=== PATIENT | male | born 1950 | race Caucasian/White ===

== ENCOUNTER → 2017-01-15 | Outpatient (CLI) | payer MEDICARE, OTHER ==
[~2017-01-15] MED LIST: ALLO300T2 PO; ANDR1GEL TOPICAL; ASPI1TAB69 PO; CALC0.0013 TOPICAL; CLIN1GEL TOPICAL; CLOB0.055 TOPICAL; COLC1CAP3 PO; CYCL1TAB29 PO; DIAZ5 PO; HYDR-3583 PO; IBUP-232 PO; IBUP800T23 PO; INDO50CA PO; KETO2CRE TOPICAL; LIPI40TA PO; LISI-591 PO; LISI40TA PO; MEDR4PAK PO; MOBI15TA PO; NEUR300C PO; OMEP40CA2 PO; TIZA4TAB PO; TOPR50TA PO; ZANA4CAP PO; ZOFR4TAB3 SL
[2017-01-15 10:11] LABS: BLOOD, URINE NEG (NEG); GLUCOSE,URINE NEG (NEG); KETONE, URINE NEG (NEG); NITRITE,URINE NEG (NEG); PH, URINE 5.5 (5.0-8.5); URINE COLOR LIGHT-YELLOW (YELLW/STRAW)
[2017-01-15 10:13] LABS: COMMENT (UR) CULT NOT INDICATED; CULTURE IF INDICATED CULT NOT INDICATED
[2017-01-15 10:18] LABS: APTT (PATIENT) 28.7 SEC (24.3-30.1); PROTHROMBIN TIME - PATIENT 10.8 SEC (9.8-11.6)
[2017-01-15 10:24] LABS: AUTOMATED NEUTROPHIL # 3.3 TH/MM3 (1.8-7.7); BASOPHIL # 0.1 TH/MM3 (0-0.2); BASOPHIL % 0.9 % (0.0-2.0); EOSINOPHIL # 0.1 TH/MM3 (0-0.4); EOSINOPHIL % 2.2 % (0.0-4.0); HEMATOCRIT 44.8 % (39.0-51.0); HEMO FLAGS DIFF FINAL; LYMPH % 24.3 % (9.0-44.0); LYMPHOCYTE # 1.4 TH/MM3 (1.0-4.8); MEAN CELL VOLUME 95.4 FL (80.0-100.0); MEAN CORPUSCULAR HEMOGLOBIN 32.4 PG (27.0-34.0); MONO % 13.7 % (0.0-8.0); NEUT % 58.9 % (16.0-70.0); PLATELET COUNT 188 TH/MM3 (150-450); RED CELL DISTRIBUTION WIDTH 13.9 % (11.6-17.2); WHITE BLOOD COUNT 5.6 TH/MM3 (4.0-11.0)
[2017-01-15 10:48] LABS: ALKALINE PHOSPHATASE 83 U/L (45-117); ALT (GPT) 46 U/L (12-78); ANION GAP 7 MEQ/L (5-15); AST (GOT) 29 U/L (15-37); BICARBONATE 28.5 MEQ/L (21.0-32.0); BLOOD UREA NITROGEN 13 MG/DL (7-18); CHLORIDE 103 MEQ/L (98-107); GLOMERULAR FILTRATION RATE 82 ML/MIN (>89); GLUCOSE,FASTING 83 MG/DL (74-99); POTASSIUM 4.5 MEQ/L (3.5-5.1); SODIUM (NA) 138 MEQ/L (136-145); TOTAL BILIRUBIN ADULT 0.9 MG/DL (0.2-1.0)
--- NOTE | 2017-01-15 11:24 | RADRPT ---
EXAM DATE/TIME: 01/15/2017 11:00 [facility] COMPARISON: No previous studies available for comparison. INDICATIONS : Evaluate for pneumonia, pneumothorax, and communicable diseases. Pre-op back surgery. MEDICAL HISTORY : None. SURGICAL HISTORY : None. ENCOUNTER: Initial ACUITY: 1 day PAIN SCORE: 0/10 LOCATION: Bilateral chest FINDINGS: PA and lateral views of the chest demonstrate the lungs to be symmetrically aerated without evidence of mass, infiltrate or effusion. The cardiomediastinal contours are unremarkable. Osseous structure s are intact. CONCLUSION: No acute disease. Leonardo Addison MD FACR on January 15, 2017 at 11:22 Board Certified Radiologist. This report was verified electronically.
--- NOTE | 2017-01-15 13:51 | EKG ---
Date Performed: 01/15/2017 Time Performed: 10:20:21 PTAGE: 66 years EKG: SINUS BRADYCARDIA BORDERLINE ECG NO PREVIOUS TRACING DOCTOR: Chris Prabhakar Interpretating Date/Time 01/15/2017 13:49:36
== END ==
LOC: CPRE 09:19
PROVIDERS: ATTEND Neurological Surgery
DX: Z01.810 Encounter for preprocedural cardiovascular examination (principal); Z01.811 Encounter for preprocedural respiratory examination; Z01.812 Encounter for preprocedural laboratory examination; Z01.818 Encounter for other preprocedural examination; M48.06 Spinal stenosis, lumbar region; R94.31 Abnormal electrocardiogram [ECG] [EKG]
CPT/HCPCS: 36415; 71020; 80053; 81001; 85025; 85610; 85730; 93005

== ENCOUNTER 2017-01-27 06:16 | Observation (INO) | payer MEDICARE, OTHER ==
[~2017-01-27] VITALS: Ht 188 cm; Wt 122.1 kg
[~2017-01-27 06:16] MED LIST changes: -HYDR-3583 PO; -IBUP-232 PO; -LISI-591 PO; -MEDR4PAK PO; -NEUR300C PO; -TIZA4TAB PO; -ZANA4CAP PO; -ZOFR4TAB3 SL
[2017-01-27] MEDS ORDERED: CHLORHEXIDINE GLUCONATE 2 % 1 PACK (2 CLOTHS) TOPICAL PRN (06:45)
[2017-01-27] MEDS ORDERED: INSULIN HUMAN REGULAR 1,000 UNITS/10 ML VIAL SQ PRN (06:45)
[2017-01-27] MEDS ORDERED: POVIDONE IODINE 5% (ANTISEPSIS KIT) 4 APPLICATIONS EACH NARE PRN (06:45)
[2017-01-27] MEDS ORDERED: METOPROLOL TARTRATE 25 MG TAB PO PRN (06:45)
[2017-01-27] MEDS: SODIUM CHLOR 0.9% 1000 ML INJ 1,000 ML IV SCH (06:45)
[2017-01-27] MEDS ORDERED: VANCOMYCIN HCL 1000 MG ON-CALL/NS 250 ML IV SCH ×2 (06:45)
[2017-01-27] MEDS ORDERED: SODIUM CHLORID 0.9% 500 ML IV PRN (06:45)
[2017-01-27] MEDS ORDERED: BUPIVACAINE/EPINEPHRINE 0.5% PF 30 ML VIAL ONE (06:51)
[2017-01-27] MEDS ORDERED: ceFAZolin 2 GM PREMIX 50 ML ONE (06:51)
[2017-01-27] MEDS ORDERED: methylPREDNISolone ACETATE 40 MG/ML VIAL ONE (06:51)
[2017-01-27] MEDS ORDERED: THROMBIN (TOPICAL) 5,000 UNIT VIAL ONE (06:51)
[2017-01-27] MEDS ORDERED: GELFOAM SIZE 100 ONE (06:52)
[2017-01-27] MEDS ORDERED: GENTAMICIN SULFATE 80 MG/2 ML VIAL ONE (06:52)
[2017-01-27 07:17] VITALS: BP 135/82; PULSE 61; RESP 20; TEMP 98.1; O2SAT 95
[2017-01-27] MEDS: LACTATED RINGER'S 1000 ML IV PRN ×2 (07:23→15:18)
[2017-01-27] MEDS ORDERED: ARTIFICIAL TEARS OPTH OINT 3.5 APPLIC/3.5 GM TUBO ONE (08:03)
[2017-01-27] MEDS ORDERED: FAMOTIDINE 20 MG/2 ML VIAL ONE (08:03)
[2017-01-27] MEDS ORDERED: MIDAZOLAM HCL 2 MG/2 ML VIAL ONE (08:03)
[2017-01-27] MEDS ORDERED: fentaNYL CITRATE 250 MCG/5 ML AMP ONE (08:03)
[2017-01-27] MEDS ORDERED: CYCLOBENZAPRINE HCL 10 MG TAB PO PRN (10:00)
[2017-01-27] MEDS ORDERED: RESP: ALBUTEROL 2.5 MG/3 ML NEB (PRN) INH (10:00)
[2017-01-27] MEDS ORDERED: MORPHINE SULFATE 4 MG/ML INJ IV PUSH PRN ×2 (10:00)
[2017-01-27] MEDS ORDERED: INDOMETHACIN 50 MG CAP PO PRN (10:00)
[2017-01-27] MEDS ORDERED: cloNIDine HCL 0.1 MG TAB PO/NG PRN (10:00)
[2017-01-27] MEDS ORDERED: COLCHICINE 0.6 MG TAB PO PRN (10:00)
[2017-01-27] MEDS ORDERED: ACETAMINOPHEN 325 MG TAB PO PRN (10:00)
[2017-01-27] MEDS ORDERED: ACETAMINOPHEN/HYDROcodone 325 MG/10 MG TAB PO PRN ×2 (10:00)
[2017-01-27] MEDS ORDERED: DIAZEPAM 5 MG TAB PO PRN (10:00)
[2017-01-27] MEDS ORDERED: SODIUM CHLORIDE 0.9% FLUSH 5 ML FLUSH IVF PRN (10:00)
[2017-01-27] MEDS ORDERED: KETOCONAZOLE 2% CREAM 15 GM TOPICAL PRN (10:00)
[2017-01-27] MEDS ORDERED: MENTHOL LOZENGE BUCCAL PRN (10:00)
[2017-01-27] MEDS ORDERED: CLOBETASOL 0.05% TOPICAL (11:15)
[2017-01-27] MEDS ORDERED: CLINDAMYCIN 1% TOPICAL (11:15)
[2017-01-27] MEDS ORDERED: CALCIPOTRIENE 0.005% TOPICAL (11:15)
[2017-01-27] MEDS ORDERED: LACTATED RINGER'S 1000 ML INJ 1,000 ML IV ONE (12:00)
[2017-01-27] MEDS ORDERED: PROPOFOL 200 MG/20 ML AMP IV ONE (12:00)
[2017-01-27] MEDS ORDERED: NEOSTIGMINE 3 MG/3 ML SYR IV ONE ×2 (12:00)
[2017-01-27] MEDS ORDERED: ePHEDrine/NS 25 MG/5 ML SYR IV ONE (12:00)
[2017-01-27] MEDS ORDERED: ONDANSETRON HCL 4 MG/2 ML VIAL IV PUSH ONE (12:00)
[2017-01-27] MEDS ORDERED: PHENYLEPH/NS 1000 MCG/10 ML SYR IV ONE (12:00)
[2017-01-27] MEDS: NS + KCL 20 MEQ INJ 1,000 ML IV SCH ×2 (12:40→21:10)
--- NOTE | 2017-01-27 12:46 | RADRPT ---
EXAM DATE/TIME: 01/27/2017 09:15 [facility] COMPARISON: No previous studies available for comparison. INDICATIONS : Lumbar spine L3-4 L4-5 laminectomy and disk resection. OR. MEDICAL HISTORY : None. SURGICAL HISTORY : None. ENCOUNTER: Initial ACUITY: 1 day PAIN SCORE: Non-responsive. LOCATION: Lumbar 3-4 4-5 CONCLUSION: Lateral fluoroscopic image demonstrates temporary probe marking the posterior elements at L4. Elliott Damico MD on January 27, 2017 at 12:39 Board Certified Radiologist. This report was verified electronically.
[2017-01-27] MEDS ORDERED: DO NOT ADM ANY ANTICOAGULANT DRUGS PRN (13:00)
[2017-01-27] MEDS ORDERED: *ONDANSETRON 4 MG VIAL PERIprocedural Use ONLY ONE (13:01)
[2017-01-27 14:00] VITALS: BP 126/80; PULSE 67; RESP 16; TEMP 95.8; O2SAT 95
--- NOTE | 2017-01-27 14:17 | PD.OP ---
Operative Report Date of Surgery: January 27, 2017 Preoperative Diagnosis: Lumbar spinal stenosis Postoperative Diagnosis: Lumbar spinal stenosis Procedure: L3-4, L4-5 decompressive laminotomy, foraminotomy, mesial facetectomy with microsurgical resection of the disk Anesthesia: general Surgeon: Kulwinder Crowe Dental Floss Packer(s): Tania Milian Operation and Findings: INDICATIONS FOR THE SURGICAL PROCEDURE Mr Cleveland is a 66 year-old male who presented with intractable mechanical back pain and clinical evidence of L4 and L5 lower extremity radiculopathy. The patient was found to have significant lumbar spinal stenosis with significant mass effect on the neural structures which correlated with the clinical symptoms. He failed maximum nonsurgical management including multiple modalities of conservative treatment as well as pain management interventions by an interventional pain specialist. A surgical decompression was indicated as a last resort. The [id number] details of the procedure, indications, alternatives, risks and potential complications were fully discussed with the patient. The patient fully understood. All the questions were answered. No guarantees were given. The patient voiced requesting the procedure and provided informed consents. The patient was offered the alternative of delaying the procedure and continuing with nonsurgical management. DETAILS OF THE SURGICAL PROCEDURE After the induction of general anesthesia, endotracheal intubation was performed. A Nielsen catheter, bilateral LISY hose and sequential compression devices were placed and kept throughout the procedure. The patient was positioned prone on a Mayo table over a Pj frame. All pressure points were carefully padded with eggcrate mattress. The eyes were tapped shut after ointment was applied by the anesthesiologist to prevent corneal abrasion. A Elizabeth hugger was placed over the exposed lower body to maintain control of the core body temperature. The lower lumbar region was prepped and draped in the usual sterile fashion. A spinal needle was placed for localization and an x- ray performed with a C-arm. A skin incision was made in the midline over the spinous processes L3-4 ands L4- 5 with a #10 blade. Small subcutaneous bleeders were controlled with a bipolar and the dissection was carried out through the lumbar fascia exposing the spinous processes. A subperiostial dissection was performed with a James elevator and a Bovie over the L3-4 ands L4-5 spinous process lamina and facets. A microdiscectomy self-retaining retractor was placed on the incision and an x -ray was obtained with an instrument placed underneath the lamina of L4. At this point in the procedure the operating microscope was draped in the usual sterile fashion and brought to the field. The rest of the surgical procedure was performed using microsurgical dissection technique with exception of the closure. Once the level was confirmed, a left decompressive laminectomy was performed at L4-5 using the TPS drill with an 4mm drill bit. A medial facetectomy was performed and the superior free border of the ligamentum flavum was dissected with a ligament dissector and removed with a thin footplate 2 mm Kerrison. The medial facetectomy was done and the L5 nerve root was identified and followed towards its exit in the foramen. Epidural veins located laterally to the dural sac were coagulated with a bipolar and incised with microscissors. Gentle medial retraction of the dural sac allowed inspection of the disc space. The patient had severe facet arthropathy with hypertrhopy of the joint facets and ligamentum flavum resulting in mass effect over the dural sac and nerve roots. In addition, there was a broad-based disc protusion, contributing to the stenosis. The annulus fibrosus of the disc was coagulated with the bipolar and incised with an 11 blade. The extruded disc was carefully dissected from the surrounding tissue and removed with pituitary forceps. Then, a microdiscectomy was carried out in the standard fashion using straight and up-biting pituitary forceps. A good decompression of the dural sac and nerve root was achieved. The exit of the nerve root was inspected for residual disc fragments and hemostasis was secured with the bipolar. Then, a new xray was performed to locarte L3-4. Once the level was confirmed, a left decompressive laminectomy was performed at L3-L4 using the TPS drill with an 4mm drill bit. A medial facetectomy was performed and the superior free border of the ligamentum flavum was dissected with a ligament dissector and removed with a thin footplate 2 mm Kerrison. The medial facetectomy was done and the L4 nerve root was identified and followed towards its exit in the foramen. Epidural veins located laterally to the dural sac were coagulated with a bipolar and incised with microscissors. Gentle medial retraction of the dural sac allowed inspection of the disc space. The patient had severe facet arthropathy with hypertrhopy of the joint facets and ligamentum flavum resulting in mass effect over the dural sac and nerve roots. In addition, there was a very mild broad-based disc protusion, and discectomy was not deemed necessary at this level The incision was irrigated with a large amount of saline solution. A Valsalva maneuver failed to show any cerebrospinal fluid leak or bleeding. The decompression was assessed again and found to be satisfactory. The incision was then closed in layers. The fascia was closed with 0 Vicryl sutures in an interrupted fashion. The superficial fascia was closed with 0 Vicryl sutures. The fascia was infiltrated with 0.5% Marcaine with epinephrine 1:100,000 dilution. The subcutaneous tissue was irrigated then closed with 0 Vicryl and 3 -0 Vicryl. The skin was closed with 4-0 running subcuticular Vicryl. A sterile dressing was applied. At the end of the procedure, the sponge, needle and instrument counts were all correct. Estimated blood loss was less than 80 cc. No blood transfusion was given. No intraoperative complications occurred. The patient received prophylactic antibiotics. The patient was then extubated and transferred to the recovery room in stable condition. Kulwinder Crowe MD January 27, 2017 14:17
[2017-01-27] MEDS ORDERED: HYDR-3583 PO (14:52)
[2017-01-27] MEDS ORDERED: ZOFR4TAB3 SL (14:53)
--- NOTE | 2017-01-27 14:55 | HHI.DCPOC ---
Discharge Care Plan Diagnosis: (1) S/P lumbar laminectomy Goals to Promote Your Health * To prevent worsening of your condition and complications * To maintain your health at the optimal level Directions to Meet Your Goals Take your medications as prescribed Follow your dietary instruction Follow activity as directed Keep your appointments as scheduled Take your immunizations and boosters as scheduled If your symptoms worsen call your PCP, if no PCP go to Urgent Care Center or Emergency Room Smoking is Dangerous to Your Health. Avoid second hand smoke Call the 24-hour hour crisis hotline for domestic abuse at Dina Bowen January 27, 2017 14:55
[2017-01-27 17:35] VITALS: O2SAT 92
[2017-01-27] MEDS: ceFAZolin 2 GM PREMIX 50 ML IV SCH (18:13)
[2017-01-27] MEDS: ONDANSETRON HCL 4 MG/2 ML VIAL IV PRN (19:29)
[2017-01-27 20:00] VITALS: BP 133/84; PULSE 83; RESP 18; TEMP 96.7; O2SAT 94
[2017-01-27] MEDS ORDERED: ATORVASTATIN 40 MG TAB PO SCH (21:00)
[2017-01-27] MEDS: SODIUM CHLORIDE 0.9% FLUSH 5 ML FLUSH IVF SCH (21:00)
[2017-01-27] MEDS ORDERED: NON-FORMULARY DRUG (Omeprazole 40 MG) PO SCH (21:00)
[2017-01-27] MEDS: DOCUSATE SODIUM 100 MG CAP PO SCH (21:08)
[2017-01-28] VITALS: BP 111/67; PULSE 87; RESP 18; TEMP 97.2; O2SAT 95
[2017-01-28] MEDS: ceFAZolin 2 GM PREMIX 50 ML IV SCH ×2 (01:02→08:37)
[2017-01-28 04:00] VITALS: BP 103/55; PULSE 75; RESP 16; TEMP 98; O2SAT 95
[2017-01-28] MEDS: ONDANSETRON HCL 4 MG/2 ML VIAL IV PRN ×2 (05:37→16:27)
[2017-01-28] MEDS: NS + KCL 20 MEQ INJ 1,000 ML IV SCH ×2 (05:37→15:48)
[2017-01-28] MEDS: SODIUM CHLOR 0.9% 1000 ML INJ 1,000 ML IV SCH (06:45)
[2017-01-28 07:41] VITALS: BP 122/67; PULSE 70; RESP 18; TEMP 99.2; O2SAT 92
[2017-01-28] MEDS: DOCUSATE SODIUM 100 MG CAP PO SCH (08:37)
[2017-01-28] MEDS: SODIUM CHLORIDE 0.9% FLUSH 5 ML FLUSH IVF SCH (08:38)
[2017-01-28] MEDS ORDERED: LISINOPRIL 20 MG TAB PO SCH (09:00)
[2017-01-28] MEDS ORDERED: TESTOSTERONE TOPICAL SCH (09:00)
[2017-01-28] MEDS ORDERED: PANTOPRAZOLE SOD 40 MG DELAYED RELEASE TAB PO SCH (09:00)
[2017-01-28] MEDS ORDERED: METOPROLOL SUCCINATE 50 MG EXTENDED RELEASE TAB PO SCH (09:00)
[2017-01-28] MEDS ORDERED: ALLOPURINOL 300 MG TAB PO SCH (09:00)
[2017-01-28] MEDS ORDERED: KETOROLAC TROMETHAMINE 60 MG/2 ML (IM) VIAL IM ONE (10:00)
[2017-01-28] MEDS ORDERED: ZANA4CAP PO (10:00)
[2017-01-28] MEDS ORDERED: HYDROmorphone HCL PF 2 MG/ML VIAL SQ ONE (10:00)
--- NOTE | 2017-01-28 10:46 | HHI.DS ---
Discharge Summary Admission Date January 27, 2017 at 09:51 Discharge Date: January 28, 2017 Admitting Diagnosis s/p lumbar laminectomy (1) S/P lumbar laminectomy ICD Code: Z98.890 Brief History Mr Cleveland is a 66 year-old male who presented with intractable mechanical back pain and clinical evidence of L4 and L5 lower extremity radiculopathy. The patient was found to have significant lumbar spinal stenosis with significant mass effect on the neural structures which correlated with the clinical symptoms. He failed maximum nonsurgical management including multiple modalities of conservative treatment as well as pain management interventions by an interventional pain specialist. A surgical decompression was indicated as a last resort Imaging Last Impressions Lumbar Spine X-Ray 01/27/17 0000 Signed Impressions: Service Date/Time: Friday, January 27, 2017 09:15 - CONCLUSION: Lateral fluoroscopic image demonstrates temporary probe marking the posterior elements at L4. Elliott Damico MD Hospital Course Mr. Raman underwent laminectomy on January 27, 2017. His surgery went well without complications. He was discharged home the following day in stable conditions. Pt Condition on Discharge: Stable Discharge Disposition: Discharge Home Discharge Instructions DIET: Follow Instructions for: Heart Healthy Diet ACTIVITIES You can perform: Weight Bearing As Andrew ADDITIONAL Activity Instructio: Avoid strenuous activities, heavy lifting, overhead activities, repetitive bending, twisting, pushing, pulling or any activities which might result in stress over the spine. Avoid situtation that will put at risk for falls. Use assistive device as needed for walking. Wear lumbar brace when out of bed. New Medications: Ondansetron Odt (Zofran Odt) 4 Mg Tab 4 MG SL Q8HR PRN Nausea/Vomiting #15 Ref 0 TAB Tizanidine (Zanaflex) 4 Mg Cap 4 MG PO TID Muscle Spasm #90 Ref 0 CAP Hydrocodone-Acetaminophen (Hydrocodone-Acetaminophen) 10-325 mg Tab 1 TAB PO Q8HR PRN PAIN SCALE 1 TO 10 #90 TAB Continued Medications: Allopurinol (Allopurinol) 300 Mg Tab 300 MG PO DAILY Gout #30 Ref 0 TAB Aspirin (Aspirin) 81 Mg Tabdr 81 MG PO DAILY Blood Clot Prevention TAB Atorvastatin (Lipitor) 40 Mg Tab 40 MG PO HS Cholesterol Management #30 Ref 0 TAB Calcipotriene Topical (Calcipotriene Topical) 0.005% Soln 1 APPLIC TOPICAL BID comb hair to remove debris, part hair, apply only to scalp lesions, rub in gently & completely to prevent spread to forehead. PRN PSORIASIS #60 Ref 0 ML Clindamycin Topical (Clindamycin Topical) 1% Gel 1 APPLIC TOPICAL BID PRN RASH #30 Ref 0 GM Clobetasol Topical (Clobetasol Topical) 0.05% Cream 1 APPLIC TOPICAL BID PRN RASH #15 Ref 0 GM Colchicine (Colchicine) 0.6 Mg Cap 0.6 MG PO DAILY PRN GOUT Ref 0 CAP Cyclobenzaprine (Flexeril) 10 Mg Tab 10 MG PO TID PRN MUSCLE SPASM #90 Ref 0 TAB Diazepam (Valium) 5 Mg Tab 5 MG PO BID PRN anxiety, spasm #30 Ref 0 TAB Ibuprofen (Ibuprofen) 800 Mg Tab 600 MG PO TID PRN PAIN Ref 0 TAB Indomethacin (Indomethacin) 50 Mg Cap 50 MG PO DAILY Take with food, milk, or antacids to decrease stomach adverse effects. PRN GOUT Ref 0 CAP Ketoconazole Topical (Ketoconazole Topical) 2% Cream 1 APPLIC TOPICAL DAILY PRN FUNGAL #15 Ref 0 GM Lisinopril (Lisinopril) 40 Mg Tab 40 MG PO DAILY Blood Pressure Management #30 Ref 0 TAB Meloxicam (Mobic) 15 Mg Tab 15 MG PO DAILY PRN ARTHRITIS PAIN Ref 0 TAB Metoprolol Succinate ER 24 HR (Toprol XL) 50 Mg Tab 50 MG PO DAILY Blood Pressure Management #30 Ref 0 TAB Omeprazole (Omeprazole) 40 Mg Cap 40 MG PO BID Reflux #30 Ref 0 CAP Testosterone Topical (Androgel Topical) 25 Mg/2.5 Gm Gel 50 MG TOPICAL DAILY Apply in the morning to the shoulder and the upper arm Hormone Replacement #1 Ref 0 Dina Webb January 28, 2017 10:46
[2017-01-28 10:57] VITALS: O2SAT 93
[2017-01-28 11:38] VITALS: BP 119/73; PULSE 79; RESP 18; TEMP 97.3; O2SAT 91
[2017-01-28] MEDS ORDERED: HYDROmorphone HCL PF 2 MG/ML VIAL IV PUSH SCH (13:15)
[2017-02-16] MEDS ORDERED: TIZA4TAB PO (11:11)
[2017-02-16] MEDS ORDERED: NEUR300C PO (11:21)
[2017-02-16] MEDS ORDERED: IBUP-232 PO (11:21)
[2017-03-01] MEDS ORDERED: TIZA4TAB PO (16:15)
[2017-03-04] MEDS ORDERED: MEDR4PAK PO (17:18)
[2017-03-04] MEDS ORDERED: ZOFR4TAB3 SL (17:20)
== END 2017-01-28 17:13 | disposition home or self-care (01) ==
LOC: HSDC 06:16 → HSDI 09:51 → N06B 13:35
PROVIDERS: ADMIT Neurological Surgery; ATTEND Neurological Surgery
DX: M48.06 Spinal stenosis, lumbar region (principal); M51.16 Intervertebral disc disorders with radiculopathy, lumbar region; I10 Essential (primary) hypertension; E78.5 Hyperlipidemia, unspecified; I25.10 Atherosclerotic heart disease of native coronary artery without angina pectoris; M10.9 Gout, unspecified; K21.9 Gastro-esophageal reflux disease without esophagitis; F17.220 Nicotine dependence, chewing tobacco, uncomplicated; Z91.030 Bee allergy status; Z85.828 Personal history of other malignant neoplasm of skin
CPT/HCPCS: 63030; 63035; 72020; 76000; 94150; 97162; G0378; J0690; J1030; J1170; J1580; J1885; J2250; J2370; J2405; J2710; J3010; J3370; J3480; J7050; J7120; L0627; G8987-GP; G8988-GP

== ENCOUNTER 2017-08-16 12:10 | Emergency (ER) | payer MEDICARE, OTHER ==
[~2017-08-16] VITALS: Ht 190.5 cm; Wt 123.0 kg
[~2017-08-16 12:10] MED LIST changes: -ASPI1TAB69 PO; +ASPI81CH7 CHEW; -CLOB0.055 TOPICAL; -CYCL1TAB29 PO; -DIAZ5 PO; +IBUP-232 PO; +IBUP1TAB7 PO; -IBUP800T23 PO; -KETO2CRE TOPICAL; +NEUR300C PO; +TIZA4TAB PO
[2017-08-16 12:32] VITALS: BP 148/85; PULSE 66; RESP 18; TEMP 98.2; O2SAT 99
[2017-08-16] MEDS ORDERED: CIAL10TA PO (14:27)
[2017-08-16] MEDS ORDERED: MECLIZINE HCL 25 MG TAB PO ONE (15:15)
[2017-08-16] MEDS ORDERED: SODIUM CHLOR 0.9% 1000 ML INJ 1,000 ML IV SCH (15:15)
[2017-08-16] MEDS ORDERED: ONDANSETRON HCL 4 MG/2 ML VIAL IV PUSH ONE (15:15)
[2017-08-16] MEDS ORDERED: LORazepam 2 MG/ML VIAL IV PUSH ONE (15:15)
--- NOTE | 2017-08-16 15:20 | PD ---
HPI Chief Complaint: Dizziness Time Seen by Provider: 15:13 Travel History International Travel<30 days: No Contact w/Intl Traveler<30days: No Traveled to known affect area: No History of Present Illness HPI This 67-year-old male says that he has been dizzy since he woke up this morning. I dizzy he does not mean that the room is spinning that he is spending at that he is lost all since his balance. He says he had a similar episode 6 weeks ago which lasted about 15 minutes. He says he had a some mild symptoms yesterday but today the symptoms are quite severe and make it hard for him to walk. In order to walk he has to hold onto things. He has chronic tinnitus. He has essential tremor. He has had back surgery in the past. He has not noted any trouble with speech or swallowing. He had melanoma 9 years ago PFSH Past Medical History Arthritis: Yes Cancer: Yes (MALIGNANT MELANOMA ON BACK) Cardiovascular Problems: No High Cholesterol: Yes Diabetes: No Endocrine: No Gout: Yes Genitourinary: No Hepatitis: No Hiatal Hernia: Yes Herniated Disk: Yes Hypertension: Yes Immune Disorder: Yes (GOUT) Musculoskeletal: Yes Neurologic: Yes (TREMORS) Psychiatric: No Reproductive: No Respiratory: No Thyroid Disease: No Influenza Vaccination: No Past Surgical History Abdominal Surgery: No AICD: No Cardiac Surgery: No Ear Surgery: No Endocrine Surgery: No Eye Surgery: No Genitourinary Surgery: No Joint Replacement: No Oral Surgery: No Pacemaker: No Thoracic Surgery: No Tonsillectomy: Yes Social History Alcohol Use: Yes (4 JULIAN JOSIE DRINKS PER DAY.) Tobacco Use: Yes (CHEWS TOBACCO) Substance Use: No Allergies-Medications (Allergen,Severity, Reaction): Coded Allergies: bee venom protein (honey bee) (Unverified Allergy, Severe, Anaphylaxis, ) Reported Meds & Prescriptions Reported Meds & Active Scripts Active Neurontin (Gabapentin) 300 Mg Cap 600 Mg PO TID Reported Cialis (Tadalafil) 10 Mg Tab 10 Mg PO DAILY PRN Do not exceed 1 dose/day. Aspirin Children's (Aspirin) 81 Mg Chew 81 Mg CHEW DAILY Lisinopril 40 Mg Tab 40 Mg PO DAILY Androgel Topical (Testosterone) 25 Mg/2.5 Gm Gel 50 Mg TOPICAL DAILY Apply in the morning to the shoulder and the upper arm Omeprazole 40 Mg Cap 40 Mg PO BID Toprol XL (Metoprolol Succinate) 50 Mg Tab 50 Mg PO DAILY Mobic (Meloxicam) 15 Mg Tab 15 Mg PO DAILY PRN Indomethacin 50 Mg Cap 50 Mg PO DAILY PRN Take with food, milk, or antacids to decrease stomach adverse effects. Colchicine 0.6 Mg Cap 0.6 Mg PO DAILY PRN Lipitor (Atorvastatin Calcium) 40 Mg Tab 40 Mg PO HS Allopurinol 300 Mg Tab 150 Mg PO DAILY Review of Systems General / Constitutional: No: Fever, Chills Eyes: No: Diploplia, Blurred Vision HENT: No: Headaches Cardiovascular: No: Chest Pain or Discomfort, Palpitations Respiratory: No: Cough, Shortness of Breath Gastrointestinal: Positive: Nausea Genitourinary: No: Urgency, Frequency Musculoskeletal: No: Myalgias Skin: No Rash Neurologic: Positive: Dizziness, Tremor Psychiatric: No: Anxiety Endocrine: No: Heat Intolerance Hematologic/Lymphatic: No: Easy Bruising Physical Exam Narrative GENERAL: Well-developed male SKIN: Focused skin assessment warm/dry. HEAD: Atraumatic. Normocephalic. EYES: Pupils equal and round. No scleral icterus. No injection or drainage. ENT: No nasal bleeding or discharge. Mucous membranes pink and moist. NECK: Trachea midline. No JVD. CARDIOVASCULAR: Regular rate and rhythm. No murmur appreciated. RESPIRATORY: No accessory muscle use. Clear to auscultation. Breath sounds equal bilaterally. GASTROINTESTINAL: Abdomen soft, non-tender, nondistended. Hepatic and splenic margins not palpable. MUSCULOSKELETAL: No obvious deformities. No clubbing. No cyanosis. No edema. NEUROLOGICAL: Awake and alert. No obvious cranial nerve deficits. I do not see any nystagmus Motor grossly within normal limits. Normal speech. He does have some past pointing on [id number] testing no this may be secondary to his tremor PSYCHIATRIC: Appropriate mood and affect; insight and judgment normal. Data Data Last Documented VS Vital Signs Date Time Temp Pulse Resp B/P (MAP) Pulse Ox O2 Delivery O2 Flow Rate FiO2 08/16/17 12:32 98.2 66 18 148/85 (106) 99 Orders Orders Complete Blood Count With Diff (08/16/17 15:13) Basic Metabolic Panel (Bmp) (08/16/17 15:13) Mri Brain W/O Contrast (08/16/17 15:13) Meclizine (Antivert) (08/16/17 15:15) Lorazepam Inj (Ativan Inj) (08/16/17 15:15) Ondansetron Inj (Zofran Inj) (08/16/17 15:15) Sodium Chlor 0.9% 1000 Ml Inj (Ns 1000 M (08/16/17 15:15) Labs Laboratory Tests Test 08/16/17 14:45 White Blood Count 6.3 TH/MM3 Red Blood Count 4.77 MIL/MM3 Hemoglobin 15.2 GM/DL Hematocrit 45.4 % Mean Corpuscular Volume 95.0 FL Mean Corpuscular Hemoglobin 31.8 PG Mean Corpuscular Hemoglobin Concent 33.4 % Red Cell Distribution Width 13.3 % Platelet Count 208 TH/MM3 Mean Platelet Volume 8.2 FL Neutrophils (%) (Auto) 72.9 % Lymphocytes (%) (Auto) 15.4 % Monocytes (%) (Auto) 10.0 % Eosinophils (%) (Auto) 1.2 % Basophils (%) (Auto) 0.5 % Neutrophils # (Auto) 4.6 TH/MM3 Lymphocytes # (Auto) 1.0 TH/MM3 Monocytes # (Auto) 0.6 TH/MM3 Eosinophils # (Auto) 0.1 TH/MM3 Basophils # (Auto) 0.0 TH/MM3 CBC Comment DIFF FINAL Differential Comment Blood Urea Nitrogen 9 MG/DL Creatinine 0.90 MG/DL Random Glucose 101 MG/DL Calcium Level 9.2 MG/DL Sodium Level 136 MEQ/L Potassium Level 3.8 MEQ/L Chloride Level 99 MEQ/L Carbon Dioxide Level 28.5 MEQ/L Anion Gap 9 MEQ/L Estimat Glomerular Filtration Rate 84 ML/MIN [facility] Medical Decision Making Medical Screen Exam Complete: Yes Emergency Medical Condition: Yes Medical Record Reviewed: Yes Differential Diagnosis Differential includes labyrinthitis, vestibular dysfunction, CVA Narrative Course I have ordered an MRI to assess for possible CVA. MRI has been read as negative. Lab work is unremarkable. Patient will be released with prescriptions for Antivert and Zofran Diagnosis Primary Impression: Vestibular dysfunction Scripts Ondansetron Odt (Zofran Odt) 4 Mg Tab 4 MG SL Q6HR Y for Nausea/Vomiting, #10 TAB 0 Refills Prov: Audie Islas MD 08/16/17 [antivert] No Conflict Check 25 MG PO Q6HR for Vertigo, #30 Prov: Audie Islas MD 08/16/17 Disposition: 01 DISCHARGE HOME Condition: Stable Audie Islas MD Aug 16, 2017 15:20
[2017-08-16 15:46] LABS: AUTOMATED NEUTROPHIL # 4.6 TH/MM3 (1.8-7.7); BASOPHIL % 0.5 % (0.0-2.0); EOSINOPHIL # 0.1 TH/MM3 (0-0.4); EOSINOPHIL % 1.2 % (0.0-4.0); HEMATOCRIT 45.4 % (39.0-51.0); HEMO FLAGS DIFF FINAL; LYMPH % 15.4 % (9.0-44.0); MEAN CORPUSCULAR HEMOGLOBIN 31.8 PG (27.0-34.0); MEAN CORPUSCULAR HGB CONC 33.4 % (32.0-36.0); NEUT % 72.9 % (16.0-70.0); PLATELET COUNT 208 TH/MM3 (150-450); RED BLOOD COUNT 4.77 MIL/MM3 (4.50-5.90); RED CELL DISTRIBUTION WIDTH 13.3 % (11.6-17.2); WHITE BLOOD COUNT 6.3 TH/MM3 (4.0-11.0)
[2017-08-16 15:52] LABS: POTASSIUM 3.8 MEQ/L (3.5-5.1)
[2017-08-16 15:58] LABS: BICARBONATE 28.5 MEQ/L (21.0-32.0)
--- NOTE | 2017-08-16 16:15 | RADRPT ---
EXAM DATE/TIME: 08/16/2017 16:05 [facility] COMPARISON: No previous studies available for comparison. INDICATIONS : CVA. MEDICAL HISTORY : Hypertension. Hernia, hiatal. Hypertension. Melanomia 9 years ago, Chronic tremor SURGICAL HISTORY : Melanoma removed from back, RF lumbar nerve sx. ENCOUNTER: Initial ACUITY: 1 day PAIN SCORE: 9/10 LOCATION: Bilateral cranial TECHNIQUE: Multiplanar, multisequence MRI of the brain was performed without contrast. FINDINGS: CEREBRUM: The ventricles are normal for age. No evidence of midline shift, mass lesion, hemorrhage or acute in farction. No extraaxial fluid collections are seen. The pituitary gland and suprasellar cistern are normal in configuration. WHITE MATTER: No significant signal abnormalities are seen in the white matter. POSTERIOR FOSSA: The cerebellum and brainstem are intact. The 4th ventricle is midline. The cerebellopontine angle is unremarkable. The cerebellar tonsils are normal in position. DIFFUSION IMAGING: No focal areas of restricted diffusion are seen. No evidence of acute infarction. EXTRACRANIAL: The visualized portions of the orbits and paranasal sinuses are unremarkable. CONCLUSION: No acute disease. Fabricio Stevens Jr., MD on August 16, 2017 at 16:11 Board Certified Radiologist. This report was verified electronically.
[2017-08-16] MEDS ORDERED: antivert PO (16:32)
[2017-08-16] MEDS ORDERED: ZOFR4TAB3 SL (16:32)
== END 2017-08-16 16:53 | disposition home or self-care (01) ==
LOC: PHEFT 12:10
DX: H81.90 Unspecified disorder of vestibular function, unspecified ear (principal); H93.19 Tinnitus, unspecified ear; R25.1 Tremor, unspecified; I10 Essential (primary) hypertension; E78.00 Pure hypercholesterolemia, unspecified; Z72.0 Tobacco use; Z87.39 Personal history of other diseases of the musculoskeletal system and connective tissue; Z85.828 Personal history of other malignant neoplasm of skin; Z86.69 Personal history of other diseases of the nervous system and sense organs
CPT/HCPCS: 70551; 80048; 85025; 96374; 96375; 99285; J2060; J2405; J7030